=== PATIENT | male | born 1995 | race Caucasian/White ===

== ENCOUNTER 2022-07-28 09:50 | Emergency (ER) | payer SELFPAY ==
[2022-07-28 09:54] VITALS: BP 134/80; PULSE 78; RESP 18; TEMP 98.1; BMI 36.8
== END 2022-07-28 11:21 | disposition home or self-care (01) ==
LOC: JER 09:50
DX: L02.31 Cutaneous abscess of buttock (principal)
CPT/HCPCS: 99282-25

== ENCOUNTER 2024-07-29 20:13 | Emergency (ER) | payer SELFPAY ==
[2024-07-29 20:31] VITALS: BP 134/80; PULSE 67; RESP 18; TEMP 98.6; BMI 32.9
[2024-07-29] MEDS ORDERED: ACETAMINOPHEN INJECTION 100 ML ONE (22:01)
[2024-07-29] MEDS: SODIUM CHLORIDE 0.9% 500 ML INFUS.BAG IV ONE (22:08)
[2024-07-29] MEDS: ACETAMINOPHEN 1000 MG/100 ML BAG IVPB ONE (22:09)
[2024-07-29 22:17] LABS: HEMATOCRIT 47.5 % (40.1-51.0); HEMOGLOBIN 15.7 g/dL (13.7-17.5); MCHC 33.1 g/dl (32.3-36.5); MEAN PLT VOLUME 11.3 fl (9.4-12.4); PLATELET COUNT 190 x10^3/uL (163-337); RDW 13.2 % (11.9-15.3)
[2024-07-29 22:37] LABS: POTASSIUM 4.1 mmol/L (3.5-5.1)
[2024-07-29 22:39] LABS: CALCIUM 9.8 mg/dL (8.5-10.1)
[2024-07-29 22:40] LABS: ALBUMIN 4.6 g/dl (3.4-5.0); BLOOD UREA NITROGEN 10.9 mg/dL (7-18)
[2024-07-29 22:43] LABS: CREATININE 0.8 mg/dL (0.55-1.3)
[2024-07-29 22:45] LABS: BILIRUBIN,TOTAL 0.4 mg/dL (0.2-1); TOT PROT 7.5 g/dl (6.4-8.2)
== END 2024-07-29 23:29 | disposition home or self-care (01) ==
LOC: JER 20:13
PROC: 3E033NZ Introduction of Analgesics, Hypnotics, Sedatives into Peripheral Vein, Percutaneous Approach (ICD-10-PCS; principal; 2024-07-29)
DX: R07.89 Other chest pain (principal); R06.02 Shortness of breath; R00.2 Palpitations; R42 Dizziness and giddiness
CPT/HCPCS: 36415; 71046-TC-FY; 80053; 84439; 84443; 84484; 85027; 93005; 93010; 99285-25; J0131